=== PATIENT | female | born 1980 | race Two or more races ===

== ENCOUNTER 2023-05-27 08:28 | Emergency (ER) | payer OTHER ==
[~2023-05-27] VITALS: Ht 182.9 cm; Wt 114.3 kg
[2023-05-27 09:47] LABS: HEMOGLOBIN 14.2 g/dL (12.0-15.00); MEAN CELL VOLUME 89.4 fL (80.00-100.00); MEAN CORPUSCULAR HEMOGLOBIN 29.5 pg (27.00-32.0); PLATELET COUNT 346 K/uL (150-450); RED BLOOD COUNT 4.81 M/uL (4.00-6.00); RED CELL DISTRIBUTION WIDTH 12.9 % (11.5-14.5)
== END 2023-05-27 12:03 | disposition home or self-care (01) ==
LOC: ER 08:29
PROVIDERS: General Practice
DX: B34.9 Viral infection, unspecified (principal); Z20.822 Contact with and (suspected) exposure to COVID-19